=== PATIENT | female | born 2000 | race Caucasian/White ===

== ENCOUNTER 2024-01-17 09:58 | Emergency (ER) | payer BC, SELFPAY ==
[2024-01-17] VITALS (12 sets, daily range): BP systolic 120; BP diastolic 70–77; PULSE 105–130; TEMP 36.8; O2SAT 80–100; BMI 24.1
[2024-01-17] MEDS: 0.9 % SODIUM CHLORIDE 1,000 ML 1000 ML IV (10:21)
--- NOTE | 2024-01-17 10:21 | ED.ARRPALP1 ---
HPI - Arrhythmia/Palpitations General Chief Complaint: Arrhythmia/Palpitations Stated Complaint: SHORTNESS OF BREATH/ NECK PAIN Time Seen by Provider: 01/17/24 10:08 Source: patient Mode of arrival: walk-in History of Present Illness HPI narrative: The patient woke up this morning with a sore throat and bilateral ear pain. She mostly is mentioned some discomfort in her throat more than the pain. She mentioned that she went to an urgent care and they found that her heart rate was 140 and they told her to come over here. The patient denies any cough fever or difficulty breathing. She mentioned that she have history of anxiety And she also mentioned that she went to sleep with no complaints Patient had 3 bouts of diarrhea since the morning and no nausea or vomiting no abdominal pain Related Data Allergies Allergy/AdvReac Type Severity Reaction Status Date / Time No Known Drug Allergies Allergy Verified 01/17/24 10:07 Review of Systems ROS Status of ROS 10 or more systems reviewed and unremarkable except as noted in history and below Exam Narrative Exam Narrative: Nurses notes and vital signs reviewed and patient is not hypoxic. General: Well-appearing and in no apparent distress. Skin: Warm, dry, no pallor noted. No rash. Head: Normocephalic, atraumatic. Neck: Supple, non-tender. Eye: Pupils are equal, round and EOMI. No scleral icterus. Ears, Nose, Mouth, and Throat: TM are clear, no nasal mucosal hypertrophy. Oral mucosa is moist, mild tonsillar erythema noted, uvula is mid-line Cardiovascular: Regular Rate and Rhythm without murmur, gallop or rub. Respiratory: No accessory muscle use or respiratory distress. Lungs are clear to auscultation, no wheezing, rales or rhonchi Chest Wall: no tenderness Back: No midline thoracic or lumbar vertebral tenderness. No CVA tenderness Musculoskeletal: normal ROM, no calf or popliteal tenderness, no lower extremity edema/swelling GI: Abdomen is soft, non-distended. Normal bowel sounds. No masses appreciated. No tenderness to palpation. No rebound, guarding, or rigidity noted. Neurological: A&O x4. No cranial nerve dysfunction observed. No truncal ataxia. Moves all extremities. Sensation intact. Psychiatric: Cooperative and interactive. Normal mood and affect. Constitutional Vital Signs, click to edit/add: Last Vital Signs Temp 98.3 F 01/17/24 10:08 Pulse 113 H 01/17/24 10:08 Resp 17 01/17/24 10:08 BP 120/70 01/17/24 10:08 Pulse Ox 100 01/17/24 10:08 O2 Del Method Room Air 01/17/24 10:08 Course Vital Signs Vital signs: Vital Signs Temperature 98.3 F 01/17/24 10:08 Pulse Rate 113 H 01/17/24 10:08 Respiratory Rate 17 01/17/24 10:08 Blood Pressure 120/70 01/17/24 10:08 Pulse Oximetry 100 01/17/24 10:08 Oxygen Delivery Method Room Air 01/17/24 10:08 Temperature 98.3 F 01/17/24 10:08 Pulse Rate 113 H 01/17/24 10:08 Respiratory Rate 17 01/17/24 10:08 Blood Pressure 120/70 01/17/24 10:08 Pulse Oximetry 100 01/17/24 10:08 Oxygen Delivery Method Room Air 01/17/24 10:08 MDM - Arrhythmia/Palpitations MDM Narrative Medical decision making narrative: The patient EKG in the ER showing sinus tachycardia with a heart rate of [address] elevation or depression CBC and chemistry showed some mild hypokalemia Patient provided with p.o. potassium Patient also provided with IV fluid and Tylenol after which her heart rate is a lot better Strep test is negative Right now the patient presentation is mostly secondary to viral infection specially with ear pain and congested nasal mucosa and the sore throat with a diarrhea The patient to continue hydration supportive care at home The patient is to follow up with primary care physician in next 2-3 days or to return to the emergency department should any of the signs or symptoms worsen or new symptoms develop. The patient agrees with the following Diagnosis and Treatment plan and the patient will be discharged home. Lab Data Labs: Lab Results 01/17/24 01/17/24 Range/Units 10:09 10:18 WBC 6.8 (4.0-11.0) 10^3/uL RBC 4.83 (4.20-5.40) 10^6/uL Hgb 12.8 (12.0-16.0) g/dL Hct 39.2 (36.0-48.0) % MCV 81.2 (81.0-99.0) fL MCH 26.5 L (26.7-34.0) pg MCHC 32.7 (29.9-35.2) g/dL RDW 12.7 (11.0-15.0) % Plt Count 275 (150-450) 10^3/uL MPV 9.4 L (9.5-13.5) fL Neut % (Auto) 79.2 H (43.0-75.0) % Lymph % (Auto) 12.3 L (20.5-60.0) % [place] % (Auto) 6.3 (1.7-12.0) % Eos % (Auto) 1.5 (0.9-7.0) % Baso % (Auto) 0.6 (0.2-2.0) % Neut # (Auto) 5.4 (1.4-6.5) 10^3/uL Lymph # (Auto) 0.8 L (1.2-3.8) 10^3/uL [place] # (Auto) 0.4 (0.3-0.8) 10^3/uL Eos # (Auto) 0.1 (0.0-0.7) 10^3/uL Baso # (Auto) 0.0 (0.0-0.1) 10^3/uL Abs Immat Gran (auto) 0.01 (0.00-0.03) 10^3/uL Imm/Tot Granulo (auto) 0.1 (0.0-0.5) % Sodium 140 (136-145) mmol/L Potassium 3.2 L (3.5-5.1) mmol/L Chloride 103 (98-107) mmol/L Carbon Dioxide 24.9 (21.0-32.0) mmol/L Anion Gap 15.3 BUN 8.0 (7.0-18.0) mg/dL Creatinine 0.80 (0.55-1.02) mg/dL Est GFR ( Amer) >60 (>=60) Est GFR (Non-Af Amer) >60 (>=60) BUN/Creatinine Ratio 10.0 Glucose 93 (74-106) mg/dL Calcium 9.2 (8.5-10.1) mg/dL Total Bilirubin 0.7 (0.2-1.0) mg/dL AST 16 (15-37) U/L ALT 18 (14-59) U/L Alkaline Phosphatase 96 (46-116) U/L Total Protein 7.8 (6.4-8.2) g/dL Albumin 3.9 (3.4-5.0) g/dL Globulin 3.9 g/dL Albumin/Globulin Ratio 1.0 SARS-CoV-2 Ag (CV2AG) Negative (NEGATIVE) Streptococcus Screen Negative Discharge Plan Discharge Stand Alone Forms: Portal Instructions Chief Complaint: Arrhythmia/Palpitations Clinical Impression: Acute viral syndrome, Hypokalemia Patient Disposition: Home, Self-Care Time of Disposition Decision: 10:52 Condition: Good Print Language: Persian Instructions: Hypokalemia (ED), Viral Syndrome (ED) Referrals: Physician,Non-Staff, [Physician] - 1 week
[2024-01-17 10:28] LABS: Basophils Percent Auto 0.6 % (0.2-2.0); Eosinophils Absolute Auto 0.1 10^3/uL (0.0-0.7); Eosinophils Percent Auto 1.5 % (0.9-7.0); Hematocrit 39.2 % (36.0-48.0); Hemoglobin 12.8 g/dL (12.0-16.0); Immature Granulocytes Abs Auto 0.01 10^3/uL (0.00-0.03); Immature Granulocytes Pct Auto 0.1 % (0.0-0.5); Lymphocytes Absolute Auto 0.8 10^3/uL (1.2-3.8); Lymphocytes Percent Auto 12.3 % (20.5-60.0); Mean Corpuscular HGB Conc 32.7 g/dL (29.9-35.2); Mean Corpuscular Hemoglobin 26.5 pg (26.7-34.0); Mean Corpuscular Volume 81.2 fL (81.0-99.0); Mean Platelet Volume 9.4 fL (9.5-13.5); Monocytes Absolute Auto 0.4 10^3/uL (0.3-0.8); Monocytes Percent Auto 6.3 % (1.7-12.0); Neutrophils Absolute Auto 5.4 10^3/uL (1.4-6.5); Neutrophils Percent Auto 79.2 % (43.0-75.0); Platelet Count 275 10^3/uL (150-450); Red Blood Count 4.83 10^6/uL (4.20-5.40); Red Cell Distribution Width 12.7 % (11.0-15.0); White Blood Count 6.8 10^3/uL (4.0-11.0)
--- NOTE | 2024-01-17 10:28 | PC.NURSE ---
patient reports she woke up at 0530 and had a sore throat that she described as a thick film in the back of my throat. patient reports she went to a local urgent care and her heart rate was found to be in the 140s. patient declined ems transport to ER. patient endorses some shortness of breath and feeling her heart racing. patient also c/o bilateral ear pain but denies sick contacts.
[2024-01-17 10:37] LABS: Internal Control Within Normal Limits; Strep A Antigen Screen Negative
[2024-01-17 10:46] LABS: Internal Control Within Normal Limits; SARS-CoV-2 Ag NEGATIVE (NEGATIVE)
[2024-01-17] MEDS: ACETAMINOPHEN 325 MG TABLET 650 MG PO (10:47)
--- NOTE | 2024-01-17 10:52 | PC.NURSE ---
In to room to allow patient to use restroom. mother here now. mother sitting in chair and another adult is sitting on mother's lap, straddling her. mother immediately begins asking questions about patient's migraine care. this nurse informs mother that patient is not here for migraine and had no complaints of headache. patient's mother says, well she has history of them, what are you going to do about them. this nurse asks patient if she has a headache and patient states, well i feel like i may get one. patient informed that she is getting fluids and is going to be given tylenol. this nurse then informs mother that we do not treat for things that are not an active problem in the ER and patient should get established with a neurologist if migraines are an issue and that we would not do testing like a CT scan due to high levels of radiation and no active complaint from the patient. mother then begins asking if she can bring in her computer to do work. this nurse says yes, that is fine. mother asks for wifi log in and this nurse explains that we do have a guest wifi log in but she can not be given any other type of log in. mother states, well i work for the [employer], it has to be secure ' this nurse lets mother know that wifi is not secured as it is a public log in. mother states, i guess i can't work then.
[2024-01-17 11:00] LABS: Alanine Aminotransferase 18 U/L (14-59); Albumin Level 3.9 g/dL (3.4-5.0); Alkaline Phosphatase 96 U/L (46-116); Anion Gap 15.3; Aspartate Amino Transferase 16 U/L (15-37); Bilirubin Total 0.7 mg/dL (0.2-1.0); Calcium 9.2 mg/dL (8.5-10.1); Carbon Dioxide 24.9 mmol/L (21.0-32.0); Chloride 103 mmol/L (98-107); Estimated GFR (African America >60 (>=60); Estimated GFR (Non-African Ame >60 (>=60); Globulin 3.9 g/dL; Glucose 93 mg/dL (74-106); Potassium 3.2 mmol/L (3.5-5.1); Sodium 140 mmol/L (136-145); Total Protein 7.8 g/dL (6.4-8.2)
[2024-01-17] MEDS: POTASSIUM BICARBONATE/CIT 25 MEQ TABLET EFF PO (11:36)
--- NOTE | 2024-01-17 12:33 | ECG_ITS ---
[facility] Test Date: 2024-01-17 Pat Name: NATHANIEL REY Department: Room: - Gender: Female Product Inspection Coordinator: : 2000 Requested By: [id number] Order Number: [id number] Reading MD: ZAHRAA RAMSEY Measurements Intervals [place] Rate: 116 P: 69 FL: 120 QRS: 48 QRSD: 86 T: 23 QT: 298 QTc: 367 Interpretive Statements 1120 Sinus tachycardia Non-Specific T wave inversion in III 9140 abnormal rhythm ECG No previous ECG available for comparison Electronically Signed On 01-18-2024 5:37:38 EDT by ZAHRAA RAMSEY
== END 2024-01-17 12:01 | disposition home or self-care (01) ==
PROVIDERS: Emergency Provider Emergency Medicine; Family Provider Family Medicine; PCP Family Medicine
DX: B34.9 Viral infection, unspecified (principal); E87.6 Hypokalemia; Z20.822 Contact with and (suspected) exposure to COVID-19
CPT/HCPCS: 36415; 80053; 85025; 87070; 87811; 87880; 93005; 99283

== ENCOUNTER 2024-03-20 19:42 | Outpatient (REF) | payer BC, SELFPAY | END 2024-03-20 19:43 | disposition home or self-care (01) | LOC: LAB 19:42 | PROVIDERS: Family Provider Family Medicine; PCP Family Medicine; Visit Provider Physician Assistant | DX: Z01.419 Encounter for gynecological examination (general) (routine) without abnormal findings (principal) | CPT/HCPCS: 88175 ==

== ENCOUNTER 2024-08-07 12:45 | Outpatient (OUT) | payer BC, SELFPAY | END 2024-08-07 12:46 | disposition home or self-care (01) | LOC: CARD 12:46 | PROVIDERS: Family Provider Family Medicine; PCP Family Medicine; Visit Provider Nurse Practitioner Family | DX: I49.9 Cardiac arrhythmia, unspecified (principal) | CPT/HCPCS: 93242 ==

== ENCOUNTER 2025-03-26 19:48 | Outpatient (REF) | payer BC, SELFPAY ==
--- OUTSIDE RECORDS SUMMARY | 2025-03-26 11:00 | XMS_ITS | Encounter Summary ---
Author Organization [facility] Address [address] [place] [address] Care Team Providers Care Windows Vmware Administrator Name Role Phone Vy Cotto NP Primary Care Provider Reason for Visit * Reason Comments Gynecologic Exam Encounter Details Date Type Department Care Team (Late st Contact Info) Description 03/26/2025 11:00 AM EDT Office Visit [facility] [address] [place] [address] Leonor Armenta PA [address] [place], [facility]11 Well woman exam with routine gynecological exam Social History Tobacco Use Types Packs/Day Years Used Date Smoking Tobacco: Never Smokeless Tobacco: Never Tobacco Cessation:Counseling Given: Not Answered Alcohol Use Standard Drinks/Week Comments Yes 2 (1 standard drink = 0.6 oz pur e alcohol) Humiliation, Afraid, Rape, and Kick questionnair e Answer Date Recorded Within the last year, have y ou been afraid of your partner or ex-partner? No 02/08/2023 Within the last year, have y ou been humiliated or emotionally abused in other ways by your partner or ex-partner? No Within the last year, have y ou been kicked, hit, slapped, or otherwise physically hurt by your partner or ex-partner? No 02/08/2023 Within the last year, have y ou been raped or forced to have any kind of sexual activity by your partner or ex-partner? No 02/08/2023 Social Connection and Isolation Panel [NHANES] A nswer Date Recorded In a typical week, how many times do you talk on the phone with family, friends, or neighbors? Twice a week 02/08/2023 How often do you get together with friends or re latives? Twice a week 02/08/2023 How often do you attend judaism or latter-day serv ices? Never 02/08/2023 Do you belong to any clubs o r organizations such as judaism groups, unions, fraternal or athletic groups, or school groups? No 02/08/2023 How often do you attend meet ings of the clubs or organizations you belong to? Never 02/08/2023 Are you , , di vorced, , never , or living with a partner? Never 02/08/2023 AUDIT-C Answer Date Recorded Q1: How often do you have a drink containing alc ohol? 2-4 times a month 02/08/2023 Q2: How many drinks containi ng alcohol do you have on a typical day when you are drinking? 1 or 2 02/08/2023 Q3: How often do you have si x or more drinks on one occasion? Less than monthly 02/08/2023 Overall Financial Resource Strain (CARDIA) Answe r Date Recorded How hard is it for you to pa y for the very basics like food, housing, medical care, and heating? Not hard at all 02/08/2023 [facility] [place] of Occupat ional Health - Occupational Stress Questionnaire Answer Date Recorded Do you feel stress - tense, restless, nervous, or anxious, or unable to sleep at night because your mind is troubled all the time - these days? Very much 02/08/2023 Exercise Vital Sign Answer Date Recorde d On average, how many days pe r week do you engage in moderate to strenuous exercise (like a brisk walk)? 5 days 02/08/2023 On average, how many minutes do you engage in exercise at this level? 150+ min 02/08/2023 Hunger Vital Sign Answer Date Recorded Within the past 12 months, y ou worried that your food would run out before you got the money to buy more. Never true 02/09/20 23 Within the past 12 months, t he food you bought just didn't last and you didn't have money to get more. Never true 02/08/2023 PRAPARE - Transportation Answer Date Re corded In the past 12 months, has l ack of transportation kept you from medical appointments or from getting medications? No 02/2023 In the past 12 months, has l ack of transportation kept you from meetings, work, or from getting things needed for daily living? No 02/08/2023 Housing Stability Vital Sign Answer Cheo e Recorded In the last 12 months, was t here a time when you were not able to pay the mortgage or rent on time? No 02/08/2023 In the last 12 months, how many places have you lived? 2 02/08/2023 In the last 12 months, was t here a time when you did not have a steady place to sleep or slept in a mcc (including now)? No 02/08/2023 Comments No Sex and Gender Information Value Date Recorded Sex Assigned at Female 02/15/2023 12:02 PM EDT Legal Sex Female 6:37 PM EDT Gender Identity Female 02/15/2023 12:02 PM EDT Sexual Orientation Not on file documented as of this encounter Last Filed Vital Signs Vital Sign Reading Time Taken Comments Blood Pressure 104/70 03/26/2025 11:33 AM EDT Pulse - - Temperature - - Respiratory Rate - - Oxygen Saturation - - Inhaled Oxygen Concentration - - Weight 62.5 kg (137 lb 12.8 oz) 025 11:33 AM EDT Height - - Body Mass Index 22.93 03/20/2024 2:19 PM EDT documented in this encounter Progress Notes * CALVIN Devi - 03/26/2025 11:00 AM EDT Reason for Appointment: Patient ID: Mal Calles is a 24 y.o. female who presents for Gynecologic Exam Patient presents today for Annual Exam. MEDICATIONS Current Outpatient Medications Medication Instructions etonogestrel-ethinyl estradiol (NuvaRing) 0.12-0.015 MG/24HR vaginal ring Insert vaginally and leave in place for 21 consecutive days (3 weeks), then remove. Wait for 7 days before inserting new ring. ALLERGIES Allergies Allergen Reactions Imitrex [Sumatriptan] Dizziness Wound Dressing Adhesive Rash PROBLEMS Active Ambulatory Problems Diagnosis Date Noted Allergic rhinitis due to allergen 02/09/2023 Chronic fatigue 05/08/2020 Major depressive disorder, single episode, moderate (HCC) 03/17/2020 Irregular menstruation 08/03/2017 Migraine with aura and without status migrainosus, not intractable 03/25/2022 Anxiety with depression 03/17/2020 Moderate depressive episode 02/09/2023 Raynaud's phenomenon without gangrene 02/09/2023 Sleep disorder 03/17/2020 Resolved Ambulatory Problems Diagnosis Date Noted Underweight 08/03/2017 Past Medical History: Diagnosis Date Allergic Anxiety GERD (gastroesophageal reflux disease) Headache HISTORY PAST MEDICAL HISTORY SOCIAL HISTORY Past Medical History: Diagnosis Date Allergic Anxiety GERD (gastroesophageal reflux disease) Headache Underweight Social History Tobacco Use Smoking status: Never Smokeless tobacco: Never Vaping Use Vaping status: Never Used Substance Use Topics Alcohol use: Yes Alcohol/week: 2.0 standard drinks of alcohol Types: 2 Standard drinks or equivalent per week Drug use: Not Currently Types: Marijuana FAMILY HISTORY Family History Problem Relation Name Age of Onset No Known Problems Mother No Known Problems Father Lung cancer Mother's Sister stage 4 Bone cancer Mother's Sister Cancer Mother's Brother Atrial fibrillation Maternal Grandmother Other (Defibrillator) Maternal Grandfather SURGICAL HISTORY Past Surgical History: Procedure Laterality Date ADENOIDECTOMY FL TONSILLECTOMY & ADENOIDECTOMY <AGE 14 REVIEW OF SYSTEMS Review of Systems: Review of Systems Constitutional: Negative. HENT: Negative. Eyes: Negative. Respiratory: Negative. Cardiovascular: Negative. Gastrointestinal: Negative. Genitourinary: Negative. Musculoskeletal: Negative. Skin: Negative. Neurological: Negative. All other systems reviewed and are negative. Hematological: Negative. Endocrine: Negative. Allergic/Immunologic: Negative. OBJECTIVE Objective: Physical Exam Constitutional: Appearance: Normal appearance. She is well-developed. Genitourinary: Vulva normal. Right Adnexa: not tender and no mass present. Left Adnexa: not tender and no mass present. No cervical discharge. Breasts: Breasts are soft. Right: Normal. Left: Normal. HENT: Head: Normocephalic. Nose: Nose normal. Mouth/Throat: Mouth: Mucous membranes are moist. Cardiovascular: Rate and Rhythm: Normal rate and regular rhythm. Pulmonary: Effort: Pulmonary effort is normal. Breath sounds: Normal breath sounds. Abdominal: General: Bowel sounds are normal. There is no distension. Palpations: Abdomen is soft. Tenderness: There is no abdominal tenderness. There is no guarding or rebound. Musculoskeletal: General: No swelling. Normal range of motion. Cervical back: Normal range of motion. Right lower leg: No edema. Left lower leg: No edema. Neurological: General: No focal deficit present. Mental Status: She is alert and oriented to person, place, and time. Skin: General: Skin is warm and dry. Psychiatric: Mood and Affect: Mood normal. Behavior: Behavior normal. Vitals and nursing note reviewed. Exam conducted with a netbackup admin present. Vitals: Estimated body mass index is 22.93 kg/m?? as calculated from the following: Height as of 03/20/24: 5' 5 . Weight as of this encounter: 137 lb 12.8 oz. BP: 104/70 No LMP recorded. ASSESSMENT & PLAN ICD-10-CM 1. Well woman exam with routine gynecological exam Z01.419 No orders of the defined types were placed in this encounter. Annual Wellness Exam: Patient presents today for routine annual exam. Patient states she has no current complaints. Patients vitals were reviewed and within normal limits. Growth and development is noted to be appropriate for age. Menstrual history is noted to be regular with no concerns reported. No mental health concerns was expressed. Pap Smear: Speculum was inserted into the vagina and pap was obtained without difficulty. No HPV testing was performed per age guideline. Patient was advised that pap results could take anywhere from 7 to 10 days to receive and our office will reach out to the patient with those once we have them. Patient canalso view results via MyChart. I reinforced importance of condom use for STI prevention. Patient declined cultures to be performed with today's visit. Breast Exam: Upon examination, clinical breast exam was noted to be normal. Patient was counseled on breast self-awareness, including the importance of knowing what is normal for her own breasts and promptly reporting any changes such as new lumps, skin dimpling, nipple discharge, or pain. Screening mammogram recommended annually beginning at age 40 or earlier if risk factors are present. Discussed signs and symptoms of breast cancer and when to seek medical attention. Answered all patient questions. Contraceptive Counseling (if applicable): Patient is currently using no control at this time as a form of contraceptive. Patient does not desire control at this time. Follow Up: Patient is to return to our office in one year for annual exam unless needed otherwise. Documented by CALVIN Devi on behalf of: CALVIN Devi documented in this encounter Plan of Treatment Not on file documented as of this encounter Visit Diagnoses Diagnosis Well woman exam with routine gynecological exam Routine gynecological examination documented in this encounter Care Teams Windows Vmware Administrator Relationship Specialty Start Date End Date Vy Cotto NP [address] [place] [address] PCP - General Family Medicine 08/20/24 documented as of this encounter
--- OUTSIDE RECORDS SUMMARY | 2025-03-26 19:51 | XMS_ITS | Encounter Summary ---
Author Organization [facility] Address [address] [facility] [place] [address] Care Team Providers Care Services Engineer Name Role Phone Dmitriy Garcia MD Primary Care Provider [phone] Vy Cotto NP Primary Care Provider Encounter Details Date Type Department Care Team (Late st Contact Info) Description 07/27/2023 Abstract [facility] [address] [place] [address] Wendy Martino, POST ANESTHESIA ROOM NURSE [address] [place] [id number] Social History Tobacco Use Types Packs/Day Years Used Date Smoking Tobacco: Never Smokeless Tobacco: Never Alcohol Use Standard Drinks/Week Comments Yes 2 [...] week 02/08/2023 How often do you attend jehovah's witness or zoroastrianism serv ices? Never 02/08/2023 Do you belong to any clubs o r organizations such as jehovah's witness groups, unions, fraternal or athletic groups, or [...] and heating? Not hard at all 02/08/2023 [facility] of Occupat ional Health - Occupational Stress [...] place to sleep or slept in a snf (including now)? No 02/08/2023 Comments No Sex and Gender Information Value Date Recorded Sex Assigned at Female 02/15/2023 12:02 PM EDT Legal Sex Female 6:37 PM EDT Gender Identity Female 02/15/2023 12:02 PM EDT Sexual Orientation Not on file documented as of this encounter Plan of Treatment Not on file documented as of this encounter Visit Diagnoses Not on filedocumented in this encounter Care Teams Services Engineer Relationship Specialty Start Date End Date Dmitriy Garcia MD [address] [place] [id number] PCP - General Family Medicine 11/09/22 08/19/24 Vy Cotto NP [address] [place] [id number] PCP - General Family Medicine 08/20/24 documented as of this encounter
--- OUTSIDE RECORDS SUMMARY | 2025-03-26 19:51 | XMS_ITS | Encounter Summary ---
Author Organization [facility] Address [address] [place] [address] Care Team Providers Care Airport Ramp Supervisor Name Role Phone Dmitriy Garcia MD Primary Care Provider [phone] Vy Cotto NP Primary Care Provider Encounter Details Date Type Department Care Team (Late st Contact Info) Description 04/22/2023 Abstract [facility] [address] [place] [address] Dmitriy Garcia MD [address] [facility] [address] [place] [address] Social History Tobacco Use Types Packs/Day Years Used Date Smoking Tobacco: Never Alcohol Use Standard Drinks/Week Comments [...] week 02/08/2023 How often do you attend zoroastrian or yazidi serv ices? Never 02/08/2023 Do you belong to any clubs o r organizations such as zoroastrian groups, unions, fraternal or athletic groups, or [...] and heating? Not hard at all 02/08/2023 [facility] [place] of Occupat ional Health - Occupational Stress [...] place to sleep or slept in a fdc (including now)? No 02/08/2023 Comments Unknown Sex and Gender Information Value Date Recorded Sex Assigned at Female 02/15/2023 12:02 PM EDT Legal Sex Female 6:37 PM EDT Gender Identity Female 02/15/2023 12:02 PM EDT Sexual Orientation Not on file documented as of this encounter Plan of Treatment Not on file documented as of this encounter Visit Diagnoses Not on filedocumented in this encounter Care Teams Airport Ramp Supervisor Relationship Specialty Start Date End Date Dmitriy Garcia MD [address] [place] [id number] PCP - General Family Medicine 11/09/22 08/19/24 Vy Cotto NP [address] [place] [id number] PCP - General Family Medicine 08/20/24 documented as of this encounter
--- OUTSIDE RECORDS SUMMARY | 2025-03-26 19:51 | XMS_ITS | Encounter Summary ---
Author Organization [facility] Address [address] [place] [address] Care Team Providers Care Retort Pre Cooker Name Role Phone Vy Cotto SERVICE CENTER ASSISTANT Primary Care Provider Encounter Details Date Type Department Care Team (Late st Contact Info) Description 03/26/2025 Bamboo flowsheet [facility] [address] [place] [address] Leonor Armenta PA [address] [facility] [place], [facility]11 Social History Tobacco Use Types Packs/Day Years [...] week 02/08/2023 How often do you attend moravian or pentecostalism serv ices? Never 02/08/2023 Do you belong to any clubs o r organizations such as moravian groups, unions, fraternal or athletic groups, or [...] and heating? Not hard at all 02/08/2023 [facility] [place] of Occupat ional Health - Occupational Stress [...] place to sleep or slept in a intermediate (including now)? No 02/08/2023 Comments No Sex [...] on filedocumented in this encounter Care Teams Retort Pre Cooker Relationship Specialty Start Date End Date Vy Cotto NP [address] [place] [address] PCP - General Family Medicine 08/20/24 documented as of this encounter
--- OUTSIDE RECORDS SUMMARY | 2025-03-26 19:51 | XMS_ITS | Clinical Summary ---
Author Organization [facility] Address [address], [address] [place] [address] Care Team Providers Care Lean Coach Name Role Phone Dmitriy Garcia MD Primary Care Provider Allergies No known active allergies Medications No known medications Social History Tobacco Use Types Packs/Day Years Used Date Smoking Tobacco: Never Smokeless Tobacco: Never Alcohol Use Standard Drinks/Week Comments Yes 0 (1 standard drink = 0.6 oz pur e alcohol) occassionally Comments Unknown Sex and Gender Information Value Date Recorded Sex Assigned at Not on file Legal Sex Female 1:14 AM EDT Gender Identity Not on file Sexual Orientation Not on file Last Filed Vital Signs Vital Sign Reading Time Taken Comments Blood Pressure 113/78 10/09/2021 2:07 AM EDT Pulse 81 10/09/2021 2:07 AM EDT Temperature 36.6 C (97.8 F) 10/09/2021 1:20 AM EDT Respiratory Rate 13 10/09/2021 2:07 AM EDT Oxygen Saturation 99% 10/09/2021 2:07 AM EDT Inhaled Oxygen Concentration - - Weight 54.4 kg (120 lb) 10/09/2021 1:20 AM EDT Height 165.1 cm (5' 5 ) 10/09/2021 1:20 AM EDT Body Mass Index 19.97 10/09/2021 1:20 AM EDT Plan of Treatment Not on file Insurance BCBS OUT OF STATE Care Teams Lean Coach Relationship Specialty Start Date End Date Dmitriy Garcia MD PCP - General 10/09/21
--- OUTSIDE RECORDS SUMMARY | 2025-03-26 19:51 | XMS_ITS | Encounter Summary ---
Author Organization [facility] Address [address] [place] [address] Care Team Providers Care Ludlow Machine Operator Name Role Phone Dmitriy Garcia MD Primary Care Provider [phone] Vy Cotto NP Primary Care Provider Encounter Details Date Type Department Care Team (Late st Contact Info) Description 02/09/2023 Orders Only [facility] [address] [place] [address] Rojas, [place], [place] Social History Tobacco Use Types Packs/Day Years [...] week 02/08/2023 How often do you attend sabianist or islam serv ices? Never 02/08/2023 Do you belong to any clubs o r organizations such as sabianist groups, unions, fraternal or athletic groups, or [...] and heating? Not hard at all 02/08/2023 [facility] - Occupational Stress [...] place to sleep or slept in a half-way (including now)? No 02/08/2023 Comments Unknown Sex and Gender Information Value Date Recorded Sex Assigned at Female 02/15/2023 12:02 PM EDT Legal Sex Female 6:37 PM EDT Gender Identity Female 02/15/2023 12:02 PM EDT Sexual Orientation Not on file COVID-19 Exposure Response Date Recorded In the last 10 days, have yo u been in contact with someone who was confirmed or suspected to have Coronavirus/COVID-19? No / Unsure 02/08/2023 9:49 AM EDT documented as of this encounter Plan of Treatment Not on file documented as of this encounter Visit Diagnoses Not on filedocumented in this encounter Care Teams Ludlow Machine Operator Relationship Specialty Start Date End Date Dmitriy Garcia MD [address] [place] [id number] PCP - General Family Medicine 11/09/22 08/19/24 Vy Cotto NP [address] [place] [address] PCP - General Family Medicine 08/20/24 documented as of this encounter
--- OUTSIDE RECORDS SUMMARY | 2025-03-26 19:51 | XMS_ITS | Clinical Summary ---
Author Organization [facility] Address [address] [place] [address] Care Team Providers Care Business Intelligence Etl Developer Name Role Phone Vy Cotto AERIAL LINEMAN Primary Care Provider Allergies Active Allergy Reactions Criticality Noted Date Comments Sumatriptan Dizziness Low 05/09/2023 Wound Dressing Adhesive Rash Low 01/18/2024 Medications etonogestrel-et hinyl estradiol (NuvaRing) 0.12-0.015 MG/24HR vaginal ringIndications :Abnormal uterine bleeding (AUB) Insert vaginally and leave in place for 21 consecutive days (3 weeks), then remove. Wait for 7 days before inserting new ring. 1 each 12 Active Active Problems Problem Noted Date Diagnosed Date Allergic rhinitis due to allergen 02/09/2023 Moderate depressive episode 02/09/2023 Raynaud's phenomenon without gangrene 02/09/2023 Migraine with aura and witho ut status migrainosus, not intractable 03/25/2022 Chronic fatigue 05/08/2020 Major depressive disorder, single episode, moder ate 03/17/2020 Anxiety with depression 03/17/2020 Sleep disorder 03/17/2020 Irregular menstruation 08/03/2017 Resolved Problems Problem Noted Date Diagnosed Date Resolved Date Underweight 08/03/2017 05/09/2023 Encounters Date Type Department Care Team Description 03/26/2025 11:00 AM EDT Office Visit [facility] [address] [place] [address] [place] [phone] Leonor Armenta PA Well woman exam with routine gynecological exam 03/26/2025 Bamboo flowsheet [facility] [address] [place] [address] Leonor Armenta PA 01/07/2025 Telephone [facility] [address] [facility] [address] Ara Kmi MA from Last 3 Months Immunizations Immunization Administration Dates Next Due DTaP / Hep B / IPV 05/22/2003,03/12/2003, 003 DTaP, 5 pertussis antigens 10/17/2007 Hib (HbOC) 10/23/2003,05/22/2003,03/12/2003 ,01/01/2003 IPV 10/17/2007 MMR 10/17/2007,10/23/2003,05/22/2003 Meningococcal MCV4O 12/09/2014 Tdap 12/09/2014,10/17/2007 Varicella 12/09/2014,02/21/2008 Family History Medical History Relation Name Comments No Known Problems Father Defibrillator Maternal Grandfather Atrial fibrillation Maternal Grandmother No Known Problems Mother Cancer Mother's Brother Bone cancer Mother's Sister Lung cancer Mother's Sister stage 4 Relation Name Status Comments Brother 1 brother Father Alive Maternal Grandfather Maternal Grandmother Mother Alive Mother's Brother Mother's Sister Sister 2 sisters Social History Tobacco Use Types Packs/Day Years [...] week 02/08/2023 How often do you attend adventism or islam serv ices? Never 02/08/2023 Do you belong to any clubs o r organizations such as adventism groups, unions, fraternal or athletic groups, or [...] and heating? Not hard at all 02/08/2023 [facility] - Occupational Stress Questionnaire Answer Date Recorded [...] place to sleep or slept in a mcfp (including now)? No 02/08/2023 Comments No Sex and Gender Information Value Date Recorded Sex Assigned at Female 02/15/2023 12:02 PM EDT Legal Sex Female 6:37 PM EDT Gender Identity Female 02/15/2023 12:02 PM EDT Sexual Orientation Not on file Last Filed Vital Signs Vital Sign Reading Time Taken Comments Blood Pressure 104/70 03/26/2025 11:33 AM EDT Pulse 98 01/18/2024 10:55 AM EDT Temperature - - Respiratory Rate - - Oxygen Saturation 99% 01/18/2024 10: 55 AM EDT Inhaled Oxygen Concentration - - Weight 62.5 kg (137 lb 12.8 oz) 025 11:33 AM EDT Height 165.1 cm (5' 5 ) 03/20/2024 2:19 PM EDT Body Mass Index 22.93 03/20/2024 2:19 PM EDT Plan of Treatment Health Maintenance Due Date Last Done Comments Influenza Vaccine (#1) 2025 Insurance BCBS Care Teams Business Intelligence Etl Developer Relationship Specialty Start Date End Date Vy Cotto NP [address] [place] [id number] PCP - General Family Medicine 08/20/24
[2025-04-02 14:09] LABS: Age Gdln ACOG Testing Note (.); IGP, rfx Aptima HPV ASCU Note (.)
== END 2025-03-26 19:49 | disposition home or self-care (01) ==
LOC: LAB 19:48
PROVIDERS: Family Provider Family Medicine; PCP Family Medicine; Visit Provider Physician Assistant
DX: Z01.419 Encounter for gynecological examination (general) (routine) without abnormal findings (principal)
CPT/HCPCS: 88175

== ENCOUNTER 2025-04-23 09:54 | Outpatient (OUT) | payer BC, SELFPAY ==
--- OUTSIDE RECORDS SUMMARY | 2025-04-23 05:39 | XMS_ITS | Continuity of Care Document ---
Author Organization [facility] Address [address] [place] [address] Phone Care Team Providers Care Marketing Operations Specialist Name Role Phone Vy Cotto APRN Primary Care Provider Leah Bautista MD Attending Provider Vy Cotto APRN Attending Provider Care Teams Patient Care Team Team Status: Active Member Role/Relationship Status Dates Vy Cotto APRN PSYCHOLOGIST PRIVATE PRACTICE-C Primary Care Provider Active Visit Care Team Team Status: Inactive Member Role/Relationship Status Dates Vy Cotto APRN PSYCHOLOGIST [employer]IVATE PRACTICE-C Primary Care Provider Active Start: January 29, 2025 End: January 29, 2025Bg James ProviderActiveStart: January 29, 2025 End: January 29, 2025 Visit Care Team Team Status: Inactive Member Role/Relationship Status Dates Vy Cotto APRN PSYCHOLOGIST [employer]IVATE PRACTICE-C Primary Care Provider Active Start: March 122024 End: March 12, 2025Bg James ProviderActiveStart: March 12, 2025 End: March 12, 2025 Visit Care Team Team Status: Inactive Member Role/Relationship Status Dates Vy Cotto APRN PSYCHOLOGIST [employer]IVATE PRACT[employer]-C Primary Care Provider Active Start: April End: April 23, 2025Vy Cotto APRN PSYCHOLOGIST PRIVATE PRACTICE-CAttending ProviderActive Start: April 23, 2025 End: April 23, 2025 Chief Complaint and Reason for Visit Chief Complaint Admit Date 2 MONTHS January 29, 2025 8:36 am 4 week f/u March 12, 2025 11:24am Wellness April 23, 2025 8 :52am Reason for Visit Admit Date Anxiety January 29, 2025 8:36 am Palpitations January 29, 2025 8:36 am Sinus tachycardia January 29, 2025 8:36 am Anxiety March 12, 2025 11:24am Palpitations March 12, 2025 11:24am Sinus tachycardia March 12, 2025 11:24am Low back pain April 23, 2025 8 :52am Screening for deficiency anemia April 23, 2025 8:52am Screening for lipid disorders April 232024 8:52am Screening for metabolic disorder April 23, 2025 8:52am Vitamin B 12 deficiency April 23 8:52am Wellness examination April 23, 2025 8:52am Allergies, Adverse Reactions, Alerts Allergen Type Severity Reaction Last Updated Verified Status adhesive Allergy Moderate Blister April 23, 2025 8:14am Yes Active Social History Smoking Status Status Start Date End Date Date of Observa tion Never smoked tobacco (finding) November 27, 2024 1:44pm Observation Status Observation Response Date of Response Legal Sex Female (finding) Sex Assigned At BirthFemaleApril 2000Pregnancy StatusNOctober 2024 Family History Relationship Condition Age at Onset Recorded Date/T josefa mother Hypothyroidism Unknown fatherHypertensionUnknownCalculus of kidneyUnknown Problems Active Problems Problem Diagnosis/Recorded Date Onset Date Stat us Low back pain April 23, 2025 9:31am Unknown A ctive Screening for deficiency anemia April 23, 2025 9:3 5am Unknown Active Tinea corporis December 19, 2024 7:08pm Unknown Act jose Palpitations July 31, 2024 3:09pm Unknown Ac tive Dizziness July 31, 2024 3:10pm Unknown Ac tive Vitamin B 12 deficiency April 23, 2025 9:33am Unkn own Active Anxiety July 31, 2024 2:23pm Unknown Ac tive Sinus tachycardia November 27, 2024 3:57pm Unknown A ctive Wellness examination April 23, 2025 9:34am Unknown Active Screening for metabolic disorder April 23, 2025 9: 34am Unknown Active Screening for lipid disorders April 23, 2025 9:34a m Unknown Active Seasonal allergic rhinitis December 19, 2024 7:08pm Unkn own Active Vitamin D deficiency April 23, 2025 9:33am Unknown Active Medications Medication Status Dose Units Route Directions Qty Days Refills S tart Date Stop Date End Date Reason(s) Instructions Adherence Etonogestrel-Ethinyl Estradiol (Enilloring) 0.12 -0.015 mg/24 hr ring Active VAG RINGVAGINALJanuary 2024 1:00amComplies with drug therapyMidodrine 2.5 mg tabletDiscontinued2.5MGPOThree times tpipr70241Cvon 2024 12:00am March 12, 2025 12:05pmdo not give last dose of day after 6PM or within 4 hrs of bedtimeTerbinafine Hcl 1 % qxzclGdlglqgehbkq8YAWZZEQHORQNTQdblo xqjuk8955 1June 2024 12:00amJuly 2024 8:41amKetotifen Fumarate 0.025 % (0.035 %) vootrUqgsbgqbwrqw0EQNXUUZR-DSRIAtciz 12 hours as needed for allergy symptoms5 2024 12:00amOct2024 9:02amFluticasone Propionate (Flonase Allergy Relief) 50 mcg/actuation spray,uwgbzonbpzBlyfbh3HBAJEMTXDSQWSCZZmbxc5963 0June 2024 12:00amadminister 2 spray into each nostrilComplies with drug therapyAcetaminophen (Tylenol 8 Hour) 650 mg tablet extended hzkyrpxSoxuiz329HS POEvery 12 hoursSeptember 2024 12:00amComplies with drug therapyPropranolol 10 mg lfsmqdVjrwxc41NDQBCucpa jnwgo96619Gpoytyjtc 9th, 2025 12:00amComplies with drug therapy Vital Signs Vital Reading Result Reference Range Collection Date/Time Height 65 [in_i] January 29, 2025 8:55lySorpmh06.68 kgJuly 2024 8:45amHeart Vgdn376 /min 60-100July 2024 8:45amRespiratory rate16 /lvl77-51Yacr 2024 8:45am Oxygen saturation by Pulse tifnqjhr84 %95-100July 2024 8:45amBP Systolic 102 mm[Hg]100-140July 2024 8:45amBP Xeswajqae03 mm[Hg]60-100July 2024 8:45amBMI (Body Mass Index)22.6 kg/m2July 2024 8:65awSkpwdf71 [in_i] March 12, 2025 11:13psCjpugx10.23 kgSeptember 2024 11:26amHeart Rate84 /rhq68-113Lekfdxytb 2024 11:26amRespiratory rate18 /wrj42-18Elprigkjs 2024 11:26amOxygen saturation by Pulse %95-100September 2024 11:26amBP Zkzqxbdp275 mm[Hg]100-140September 2024 11:26amBP Efkzaggip08 mm[Hg]60-100September 2024 11:26amBMI (Body Mass Index)22.4 kg/d4Rxqivessd 2024 11:88aaRtlpwn49 [in_i]April 23, 2025 8:84tyKnqmbb94.04 kgOctober 2024 8:59amBody Uguxbxieipc99.0 [degF]97.6-99.0October 2024 8:59am Heart Rate78 /dtj46-632Nzpiibx 2024 8:59amOxygen saturation by Pulse wcecscgi89 %95-100October 2024 8:59amBP Qvvlepjn969 mm[Hg]100-140October 2024 8:59amBP Zqlzsxodb54 mm[Hg]60-100October 2024 8:59amBMI (Body Mass Index)23.1 kg/x4Bysrosv 2024 8:59am Advance Directives Advance Directive Response Recorded Date/ Time Advance Directives No July 25, 2024 11:38am Insurance Providers Guarantor Mal Calles Address [address] [place] [id number] Info.Home Phone: Coverage Status Update:2025 Payer Group Member ID Coverage Type Subscriber Relationship to Subscriber Effective Date Expiration Date Aries LEONE Id: [id number] J Stevan Id: [id number] [address] [facility] [address] Home Phone: other1 (STD) [employer] Id: [id number] Encounters Encounter Location(s) Arrival/Admit Date Discharge/Departure Date Discharge/Departure Disposition Provider(s) Departed Physician/ Provider Office Visit -[facility] January 29, 2025 8:36am January 29, 2025 9:21am Discharged to home care or self care (routine discharge) Leah Bautista MD Departed Physician/ Provider Office Visit -[facility] March 12, 2025 11:24am March 12, 2025 12:05pm Discharged to home care or self care (routine discharge) Leah Bautista MD Departed Physician/ Provider Office Visit -[facility] April 23, 2025 8:52am April 23, 2025 9:38am Discharged to home care or self care (routine discharge) Vy Cotto APRN MANAGER TELEMARKETING Recent Diagnosis Onset Date Admit Date Anxiety Unknown January 29, 2025 8:36am Palpitations Unknown January 29, 2025 8:36am Sinus tachycardia Unknown January 29 8:36am Anxiety Unknown March 12 11:24am Palpitations Unknown March 12 11:24am Sinus tachycardia Unknown March 12, 2025 11:24am Low back pain Unknown April 23 8:52am Screening for deficiency anemia Unknown April 23, 2025 8:52am Screening for lipid disorders Unknown Oc 2024 8:52am Screening for metabolic disorder Unknown April 23, 2025 8:52am Vitamin B 12 deficiency Unknown April 23, 2025 8:52am Wellness examination Unknown April 8:52am Assessments Diagnosis Onset Date Resolution Status Admit Date Anxiety acuteJuly 2024 8:36amPalpitationsacuteJuly 2024 8:36amSinus tachycardiaacuteJuly 2024 8:36amAnxietyacuteSept2024 11:24am PalpitationsacuteSept2024 11:24amSinus tachycardiaacuteSept2024 11:24amLow back painacuteApril 23, 2025 8:52amScreening for deficiency anemiaacuteApril 23, 2025 8:52amScreening for lipid disordersacuteApril 23, 2025 8:52amScreening for metabolic disorderacuteApril 23, 2025 8:52am Vitamin B 12 deficiencyacuteApril 23, 2025 8:52amWellness examinationacute April 23, 2025 8:52am Plan of Treatment [facility] 9:30amAssessment: Neurally-mediated syncope Palpitations Tachycardia Generalized anxiety Holter monitoring August 2024 completed at [place] showed a predominantly sinus rhythm. Average heart rate 85 bpm. 15 patient triggered events which were associated with sinus tachycardia. EKG today shows sinus tachycardia with heart rate of 101 bpm. Plan: 14-day Zio monitor did not show any significant arrhythmias. Average heart rate was 92 bpm. Symptoms coincided with sinus rhythm and sinus tachycardia. Tilt table test 01/22/2025: Positive tilt table testing with a primarily vasodepressor response after nitroglycerin ministration indicative of a neurally mediated syncope - Will start a trial of low dose midodrine 2.5 mg 3 times daily and monitor response - Continue conservative management- >64oz of water/day; compression stockings; liberalized salt intake; avoiding situations that trigger symptoms - Follow up in 4 weeks or sooner as needed. [facility] 20[facility] 10:55pmAssessment: Neurally-mediated syncope Palpitations Tachycardia Generalized anxiety Holter monitoring August 2024 completed at [place] showed a predominantly sinus rhythm. Average heart rate 85 bpm. 15 patient triggered events which were associated with sinus tachycardia. EKG: Sinus tachycardia with heart rate of 101 bpm. 14-day Zio monitor did not show any significant arrhythmias. Average heart rate was 92 bpm. Symptoms coincided with sinus rhythm and sinus tachycardia. Tilt table test 01/22/2025: Positive tilt table testing with a primarily vasodepressor response after nitroglycerin ministration indicative of a neurally mediated syncope Plan: - Pt did not tolerate low dose midodrine due to daily headaches. - Will stop midodrine and do a trial of propranolol 10mg BID. Advised to take up to 10mg TID if needed. - Continue conservative management- >64oz of water/day; compression stockings; liberalized salt intake; avoiding situations that trigger symptoms - Follow up in 4 weeks or sooner as needed. Future Tests Future scheduled test information is unavailable Pending Tests Test Name Ordered Date Scheduled Date XR lumbar spine min 4V* April 23, 2025 9:31a m Comprehensive Metabolic PanelOct2024 9:34am Future Visits Future appointment information is unavailable Future Procedures Procedure Name Ordered Date Scheduled Date Vitamin B12 April 23, 2025 9:33am Complete Blood Count Auto DiffOct2024 9:34amLipid PanelOct2024 9:34amVitamin D 25 Hydroxy TotalOct2024 9:33am Future Medications Future medication information is unavailable Patient Instructions Instruction Admit Date Low back pain in adults April 23 8:52am
--- OUTSIDE RECORDS SUMMARY | 2025-04-23 10:02 | XMS_ITS | Clinical Summary ---
Author Organization [facility] Address [address] [place] [address] Care Team Providers Care Radio/Tv Technician Name Role Phone Vy Cotto WRAPPER SORTER Primary Care Provider Allergies Active AllergyReactionsCriticalityNoted DateCommentsSumatriptanDizzinessLow 05/09/2023Wound Dressing HutpxcjxYsxzBic44/17/2024 Medications MedicationSigDispense QuantityRefillsLast FilledStart DateEnd DateStatus etonogestrel-ethinyl estradiol (NuvaRing) 0.12-0.015 MG/24HR vaginal ring Indications:Abnormal uterine bleeding (AUB)Insert vaginally and leave in place for 21 consecutive days (3 weeks), then remove. Wait for 7 daysbefore inserting new ring. 1 each 1205Active Active Problems ProblemNoted DateDiagnosed DateAllergic rhinitis due to werjtjas84/09/2023 Moderate depressive mfscisf0402/09/2023Raynaud's phenomenon without gangrene 02/09/2023Migraine with aura and without status migrainosus, not intractable 2Chronic mksxswu0205/08/2020Major depressive disorder, single episode, lrlqrken58/14/2020Anxiety with pdhefwpmef19/14/2020Sleep yhvpgisi25/14/2020 Irregular rnbeejdrwcsx06/31/2018 Resolved Problems ProblemNoted DateDiagnosed DateResolved TezdCnslddamoss88 Encounters DateTypeDepartmentCare IigqHgstbdjbcme76/09/2025Orders Only [facility] [address] [place] [address] [place] [address] Indy BishopeCUAUHTEMOC 03/26/2025 11:00 AM EDTOffice Visit [facility] [address] [facility] [place] [address] Leonor Armenta PA Well woman exam with routine gynecological exam5Clinisync Result Encounter [facility] External Department Unsolicited Provider, Generic External Data 5Bamboo flowsheet [facility] [address] [facility] [place] [address] Leonor Armenta PA from Last 3 Months Immunizations ImmunizationAdministration DatesNext DueDTaP / Hep B / IPV05/22/2003,03/12/2003, 01/01/2003DTaP, 5 pertussis anolugho97/15/2008Hib (HbOC)10/23/2003,05/22/2003, 03/12/2003,01/01/2003IPV10/17/2007MMR10/17/2007,10/23/2003,05/22/2003 Meningococcal CZT1E8012/09/2014Tdap12/09/2014,10/17/20078255Yznvvocnu42/08/2015, 02/21/2008 Family History Medical HistoryRelationNameCommentsNo Known ProblemsFatherDefibrillatorMaternal GrandfatherAtrial fibrillationMaternal GrandmotherNo Known ProblemsMotherCancer Mother's BrotherBone cancerMother's SisterLung cancerMother's Sisterstage 4 RelationNameStatusCommentsBrother1 brotherFatherAliveMaternal Grandfather Maternal GrandmotherMotherAliveMother's BrotherMother's SisterSister2 sisters Social History Tobacco UseTypesPacks/DayYears UsedDateSmoking Tobacco: NeverSmokeless Tobacco: Never Tobacco Cessation:Counseling Given: Not Answered Alcohol UseStandard Drinks/WeekCommentsYes2 (1 standard drink = 0.6 oz pure alcohol)Humiliation, Afraid, Rape, and Kick questionnaireAnswerDate Recorded Within the last year, have you been afraid of your partner or ex-partner?No 02/08/2023Within the last year, have you been humiliated or emotionally abused in other ways by your partner or ex-partner?No02/08/2023Within the last year, have you been kicked, hit, slapped, or otherwise physically hurt by your partner or ex-partner?No02/08/2023Within the last year, have you been raped or forced to have any kind of sexual activity by your partner or ex-partner?No02/08/2023 Social Connection and Isolation PanelAnswerDate RecordedIn a typical week, how many times do you talk on the phone with family, friends, or neighbors?Twice a week02/08/2023How often do you get together with friends or relatives?Twice a week02/08/2023How often do you attend mandaen or anabaptism services?Never 02/08/2023o you belong to any clubs or organizations such as mandaen groups, unions, fraternal or athletic groups, or school groups?No02/08/2023How often do you attend meetings of the clubs or organizations you belong to?Never02/08/2023 Are you , , , , never , or living with a partner?Never newytua9602/08/2023UDIT-CAnswerDate RecordedQ1: How often do you have a drink containing alcohol?2-4 times a month02/08/2023Q2: How many drinks containing alcohol do you have on a typical day when you are drinking?1 or 2 02/08/2023Q3: How often do you have six or more drinks on one occasion?Less than asgegrh0202/08/2023Overall Financial Resource Strain (CARDIA)AnswerDate Recorded How hard is it for you to pay for the very basics like food, housing, medical care, and heating?Not hard at all02/08/2023[facility] [place] [facility] - Occupational Stress QuestionnaireAnswerDate RecordedDo you feel stress - tense, restless, nervous, or anxious, or unable to sleep at night because your mind is troubled all the time - these days?Very much02/08/2023Exercise Vital SignAnswerDate RecordedOn average, how many days per week do you engage in moderate to strenuous exercise (like a brisk walk)?5 days02/08/2023On average, how many minutes do you engage in exercise at this level?150+ min02/08/2023 Hunger Vital SignAnswerDate RecordedWithin the past 12 months, you worried that your food would run out before you got the money to buymore.Never true02/08/2023 Within the past 12 months, the food you bought just didn't last and you didn't have money to get more.Never true02/08/2023RAPARE - TransportationAnswerDate RecordedIn the past 12 months, has lack of transportation kept you from medical appointments or from getting medications?No02/08/2023In the past 12 months, has lack of transportation kept you from meetings, work, or from getting things needed for daily living?No02/08/2023Housing Stability Vital SignAnswerDate RecordedIn the last 12 months, was there a time when you were not able to pay the mortgage or rent on time?No02/08/2023In the last 12 months, how many places have you lived?In the last 12 months, was there a time when you did not have a steady place to sleep or slept in [facility] (including now)?No 02/08/2023CommentsNoSex and Gender InformationValueDate RecordedSex Assigned at MusggKhbehc35/15/2023 12:02 PM EDTLegal JzyBkyjgp89/15/2023 6:37 PM EDTGender PcrfgsizSstzjp20/15/2023 12:02 PM EDTSexual OrientationNot on file Last Filed Vital Signs Vital SignReadingTime TakenCommentsBlood Newyohbb856/7009 11:33 AM EDT Wvcxi7574 10:55 AM EDTTemperature--Respiratory Rate--Oxygen Saturation 99%01/18/2024 10:55 AM EDTInhaled Oxygen Concentration--Rnednt44.5 kg (137 lb 12.8 oz)03/26/2025 11:33 AM YHRWejpra615.1 cm (5' 5 )03/20/2024 2:19 PM EDTBody Mass Index22.9309 2:19 PM EDT Plan of Treatment Not on file Procedures Procedure NamePriorityDate/TimeAssociated DiagnosisCommentsIGP,APTIMA HPV,AGE MRFRFalnyhz47/23/2025 11:28 AM EDT PAP ZAWSZLpdlhad89/23/2025 12:00 AM EDTfrom Last 3 Months Results * IGP,APTIMA HPV,AGE GDLN (03/26/2025 11:28 AM EDT)ComponentValueRef RangeTest MethodAnalysis TimePerformed AtPathologist SignatureAGE GDLN ACOG TESTINGNote. TBHComment: ?? TESTS ? RESULT ??FLAG ??UNITS ?REF RANGE ??LAB ?? Clinician Provided Cytology Information ?? Source.............Cervix;Endocervix ?? No. of containers..01 ThinPrep Vial Age Algo ACOG Janice... ??21-29 ? 01 ?FLAG LEGEND: ?L-Low Normal,H-High Normal,LL-Alert Low,HH-Alert High <-Panic Low,>-Panic High,A-Abnormal,AA-Critical Abnormal Performed at: 01 =G ?[facility] ?? [address] [place] ??[phone] ?? Ana Monteiro MD, IGP, RFX APTIMA HPV ASCUNote.TBHComment: ?? TESTS ? RESULT ??FLAG ??UNITS ?REF RANGE ??LAB DIAGNOSIS: ?02 ?? NEGATIVE FOR INTRAEPITHELIAL LESION OR MALIGNANCY. Specimen adequacy: ?02 ?? Satisfactory for evaluation. ??Endocervical and/or squamous metaplastic ?? cells (endocervical component) are present. Performed by: ? 02 ?? Oliverio Chiang Passenger Elevator Operator (ASCP) . ? 02 Note: ? Note ?02 ?? The Pap smear is a screening test designed to aid in the ?? detection of premalignant and malignant conditions of the ?? uterine cervix. ??It is not a diagnostic procedure and ?? should not be used as the sole means of detecting cervical ?? cancer. ??Both false-positive and false-negative reports do ?? occur. Test Methodology: ? Note ?02 ?? This liquid based ThinPrep(R) pap test was screened with ?? the use of an image guided system. . ? 02 ?? The HPV DNA reflex criteria were not met with this specimen ?? result therefore, no HPV testing was performed. ?FLAG LEGEND: ?L-Low Normal,H-High Normal,LL-Alert Low,HH-Alert High <-Panic Low,>-Panic High,A-Abnormal,AA-Critical Abnormal Performed at: 02 WB ?[facility] ?? [address] [place], [place] ??[phone] ?? Ana Monteiro MD, Performed at: ??=G - [facility] [address], [place] ??[id number] Director Electronics: Ana Monteiro MD, Phone: ??[phone] Performed at: ??WB - [facility] [address] [place], [place] ??[id number] Director Electronics: Ana Monteiro MD, Phone: ??[phone] Specimen (Source)Anatomical Location / LateralityCollection Method / Volume Collection TimeReceived Time03/26/2025 11:28 AM EDT03/26/2025 7:54 PM EDT Narrative CLINISYNC - 04/02/2025 2:09 PM EDT BRUSH-SPATULA CERVIX ENDOCERVIX Authorizing ProviderResult TypeResult StatusAmy [place] PALAB BLOOD ORDERABLES Final ResultPerforming OrganizationAddressCity/State/ZIP CodePhone Number CLINISYNC [facility] * Pap Smear (03/26/2025 12:00 AM EDT)Specimen (Source)Anatomical Location / LateralityCollection Method / VolumeCollection TimeReceived TimeSwabCervical swab / Unknown Narrative Authorizing ProviderResult TypeResult StatusFazio Nurse [facility] Ob[facility] CYTOLOGY ORDERABLESFinal ResultPerforming OrganizationAddressCity/State/ZIP CodePhone Number EXTERNAL LAB from Last 3 Months Insurance Care Teams Team MemberRelationshipSpecialtyStart DateEnd Date Vy Cotto NP [address] [facility] [place] [place] [address] [place] [address] PCP - GeneralFamily Medicine08/20/24
--- OUTSIDE RECORDS SUMMARY | 2025-04-23 10:02 | XMS_ITS | Encounter Summary ---
Author Organization [facility] Address [address] [facility] [place] [address] Care Team Providers Care Plant Health Care Technician Name Role Phone Vy Cotto NP Primary Care Provider Encounter Details DateTypeDepartmentCare Team (Latest Contact Info)Ujbcipinlaw28/09/2025Orders Only [facility] Belinda OBGYMariana [address] [place] [address] Miesha Bishop LPN [address] [place] [id number] Social History Tobacco UseTypesPacks/DayYears UsedDateSmoking Tobacco: NeverSmokeless Tobacco: NeverAlcohol UseStandard Drinks/WeekCommentsYes2 (1 standard drink = 0.6 [...] relatives?Twice a week02/08/2023How often do you attend sikhism or alevism services?Never 02/08/2023o you belong to any clubs or organizations such as sikhism groups, unions, fraternal or athletic groups, or school groups?No02/08/2023How often do you attend meetings of the clubs or organizations you belong to?Never02/08/2023 Are you , , , , never , or living with a partner?Never rhjxpte0002/08/2023UDIT-CAnswerDate RecordedQ1: How often do you have a drink containing alcohol?2-4 times a month02/08/2023Q2: How many drinks containing alcohol do you have on a typical day when you are drinking?1 or 2 02/08/2023Q3: How often do you have six or more drinks on one occasion?Less than vlfzaga5402/08/2023Overall Financial Resource Strain (CARDIA)AnswerDate Recorded How hard is it for you to pay for the very basics like food, housing, medical care, and heating?Not hard at all02/08/2023[facility] [place] of Occupational Health - Occupational Stress QuestionnaireAnswerDate [...] steady place to sleep or slept in ashelter (including now)?No 3CommentsNoSex and Gender InformationValueDate RecordedSex Assigned at FaqsjSvxrvf12/15/2023 12:02 PM EDTLegal SqpCzdzjz23/15/2023 6:37 PM EDTGender GzkegmhoYtkjyk54/15/2023 12:02 PM EDTSexual OrientationNot on file documented as of this encounter Plan of Treatment Not on file documented as of this encounter Procedures Procedure NamePriorityDate/TimeAssociated DiagnosisCommentsPAP SMEARRoutine 03/26/2025 12:00 AM EDTdocumented in this encounter Results * Pap Smear (03/26/2025 12:00 AM EDT)Specimen (Source)Anatomical Location / LateralityCollection Method / VolumeCollection TimeReceived TimeSwabCervical swab / Unknown Narrative Authorizing ProviderResult TypeResult StatusFazio Nurse [facility] Ob[facility] CYTOLOGY ORDERABLESFinal ResultPerforming OrganizationAddressCity/State/ZIP CodePhone Number EXTERNAL LAB documented in this encounter Visit Diagnoses Not on filedocumented in this encounter Care Teams Team MemberRelationshipSpecialtyStart DateEnd Date Vy Cotto NP [address] [facility] [place] [address] PCP - GeneralFamily Medicine08/20/24documented as of this encounter
--- OUTSIDE RECORDS SUMMARY | 2025-04-23 10:02 | XMS_ITS | Clinical Summary ---
Author Organization [facility] Address [address], [address] [place] [address] Care Team Providers Care Grease Remover Name Role Phone Dmitriy Garcia MD Primary Care Provider Allergies No known active allergies Medications No known medications Social History Tobacco UseTypesPacks/DayYears UsedDateSmoking Tobacco: NeverSmokeless Tobacco: NeverAlcohol UseStandard Drinks/WeekCommentsYes0 (1 standard drink = 0.6 oz pure alcohol)occassionallyCommentsUnknownSex and Gender InformationValueDate RecordedSex Assigned at BirthNot on fileLegal DzmSpaqay69/08/2022 1:14 AM EDT Gender IdentityNot on fileSexual OrientationNot on file Last Filed Vital Signs Vital SignReadingTime TakenCommentsBlood Trnnqnqb173/7804 2:07 AM EDT Tcfen3865 2:07 AM BQMFtbowoadjwg38.6 ??C (97.8 ??F)10/09/2021 1:20 AM EDTRespiratory Kbhl3424 2:07 AM EDTOxygen Jmfbbxqbzy15%10/09/2021 2:07 AM EDTInhaled Oxygen Concentration--Kryeoh76.4 kg (120 lb)10/09/2021 1:20 AM EDT Kbsrnk594.1 cm (5' 5 )10/09/2021 1:20 AM EDTBody Mass Index19.9704 1:20 AM EDT Plan of Treatment Not on file Insurance Care Teams Team MemberRelationshipSpecialtyStart DateEnd Date Dmitriy Garcia MD PCP - [facility] [place]10/09/21
--- NOTE | 2025-04-23 10:29 | XR_ITS ---
[facility] [place] [id number] Patient Name: NATHANIEL REY MRN: [id number] date: 2000 Sex: F Assigned Patient Location: LAB Current Patient Location: LAB Accession/Order Number: [id number] Exam Date: 04/23/2025 10:30 Report Date: 04/23/2025 14:11 At the request of: ENRRIQUE HARRISON Procedure: XR lumbar spine min 4V LUMBAR SPINE -5 views: CLINICAL HISTORY: low back pain the past 3-4 months. No injury. COMPARISON: None AP, lateral, both oblique and lateral coned-down views of the lumbosacral junction were obtained. There is subtle levoscoliotic curvature. There is no evidence of fracture. Alignment is maintained on the lateral view. The disc spaces are normal in height. No hypertrophy is seen. No pars defect is identified. The sacroiliac joints are maintained. There are no paraspinal soft tissue abnormalities. XR/XR lumbar spine min 4V IMPRESSION: SUBTLE SCOLIOTIC CURVATURE. NO ACUTE BONY FINDINGS. Impression dictated by: Meli Pradhan M.D. 04/23/2025 2:11 PM Dictation Location: [place] [address] Electronically authenticated by: [id number] Y Date: 04/23/2025 14:11
[2025-04-23 10:33] LABS: Hematocrit 38.6 % (36.0-48.0); Hemoglobin 12.6 g/dL (12.0-16.0); Immature Granulocytes Abs Auto 0.01 10^3/uL (0.00-0.03); Immature Granulocytes Pct Auto 0.2 % (0.0-0.5); Lymphocytes Absolute Auto 2.3 10^3/uL (1.2-3.8); Mean Corpuscular HGB Conc 32.6 g/dL (29.9-35.2); Mean Corpuscular Hemoglobin 26.6 pg (26.7-34.0); Mean Corpuscular Volume 81.6 fL (81.0-99.0); Platelet Count 290 10^3/uL (150-450); Red Blood Count 4.73 10^6/uL (4.20-5.40); White Blood Count 5.4 10^3/uL (4.0-11.0)
[2025-04-23 10:51] LABS: Alanine Aminotransferase 18 U/L (14-59); Albumin Globulin Ratio 0.8; Albumin Level 3.6 g/dL (3.4-5.0); Alkaline Phosphatase 65 U/L (46-116); Anion Gap 14.7; Aspartate Amino Transferase 7 U/L (15-37); Blood Urea Nitrogen 8.0 mg/dL (7.0-18.0); Calcium 8.9 mg/dL (8.5-10.1); Carbon Dioxide 25.2 mmol/L (21.0-32.0); Chloride 105 mmol/L (98-107); Cholesterol 193 mg/dL (<=200); Estimated GFR (African America >60 (>=60 mL/min/1.73m^2); Estimated GFR (Non-African Ame >60 (>=60 mL/min/1.73m^2); Globulin 4.4 g/dL; Glucose 101 mg/dL (74-106); HDL Cholesterol 63 mg/dL (40-60); Potassium 3.9 mmol/L (3.5-5.1); Sodium 141 mmol/L (136-145); Total Protein 8.0 g/dL (6.4-8.2); Triglycerides 151 mg/dL (<=150); VLDL CHOLESTEROL 30.2 mg/dL
[2025-04-24 04:08] LABS: Vitamin B12 269 pg/mL (232-1245)
== END 2025-04-23 09:55 | disposition home or self-care (01) ==
LOC: LAB 09:57
PROVIDERS: Family Provider Family Medicine; PCP Nurse Practitioner Family; Visit Provider Nurse Practitioner Family
DX: Z00.00 Encounter for general adult medical examination without abnormal findings (principal); E55.9 Vitamin D deficiency, unspecified; Z13.228 Encounter for screening for other metabolic disorders; Z13.220 Encounter for screening for lipoid disorders; Z13.0 Encounter for screening for diseases of the blood and blood-forming organs and certain disorders involving the immune mechanism; E53.8 Deficiency of other specified B group vitamins; M54.50 Low back pain, unspecified
CPT/HCPCS: 36415; 72110; 80053; 80061; 82306; 82607; 85025